=== PATIENT | male | born 1995 | race African-American/Black ===

== ENCOUNTER 2017-06-26 07:46 | Inpatient (IN) | payer MEDICAID, OTHER ==
[2017-06-26] VITALS (7 sets, daily range): BP systolic 107–128; BP diastolic 56–75
[~2017-06-26] VITALS: Ht 195.6 cm; Wt 67.6 kg
[2017-06-26] MEDS ORDERED: SODIUM CHLORIDE 0.9% 1,000 ML IV ONE ×2 (08:02)
[2017-06-26] MEDS ORDERED: HYDROmorphone HCL 2 MG/ML VL IV ONE ×2 (08:15→09:30)
[2017-06-26] MEDS ORDERED: ONDANSETRON HCL 4 MG/2 ML VIAL IV ONE (08:15)
[2017-06-26 09:31] LABS: Basophils # (auto) 0.1 uL; Basophils % (auto) 0.6 % (0.0-2.0); Eosinophils # (auto) 1.2 uL; Eosinophils % (auto) 5.6 % (0.0-7.0); Hematocrit 18.1 % (41.0-53.0); Lymphocytes # (auto) 4.5 uL; Lymphocytes % (auto) 21.6 % (10.0-50.0); Mean Corpuscular Hemoglobin 33.6 pg (28.0-32.0); Mean Corpuscular Hgb Conc. 35.6 g/dL (32.0-36.0); Mean Corpuscular Volume 94.3 fL (80.0-100.0); Monocytes % (auto) 4.8 % (0.0-12.0); Neutrophils % (auto) 67.4 % (37.0-80.0); Nucleated Red Blood Cells % 0.6 %; Platelet Count (auto) 351 10^3/uL (140-450); Red Blood Cells 1.92 10^6/uL (4.5-5.90); White Blood Cell 20.8 10^3/uL (4.4-10.8)
[2017-06-26 09:33] LABS: Red Cell Distribution Width 25.3 % (11.8-14.3)
[2017-06-26 09:38] LABS: Hemoglobin 6.4 g/dL (13.5-17.5)
[2017-06-26 09:50] LABS: Albumin 4.2 g/dL (3.4-5.0); BUN/Creatinine Ratio 25.6; Bilirubin, Total 4.2 mg/dL (0.2-1.0); Calcium 7.9 mg/dL (8.5-10.1); Potassium 3.7 mmol/L (3.5-5.1); Total Protein 7.5 g/dL (6.4-8.2)
[2017-06-26 11:22] LABS: Hematocrit 17.2 % (41.0-53.0)
[2017-06-26 11:32] LABS: INR 1.06 (0.9-1.15); Partial Thromboplastin Time 27.3 sec (22.64-33.71); Prothrombin Time 11.6 sec (9.37-12.3)
[2017-06-26 11:34] LABS: Hemoglobin 6.1 g/dL (13.5-17.5)
[2017-06-26] MEDS ORDERED: ONDANSETRON HCL 4 MG/2 ML VIAL IV PRN (12:00)
[2017-06-26] MEDS ORDERED: ACETAMINOPHEN 325 MG TAB PO PRN (12:00)
[2017-06-26] MEDS ORDERED: SODIUM CHLORIDE 0.9% 1,000 ML IV SCH (12:00)
[2017-06-26] MEDS ORDERED: PERCOT PO (12:08)
[2017-06-26] MEDS: HYDROmorphone HCL 2 MG/ML VL IV PRN ×2 (12:31→22:21)
[2017-06-26 14:31] LABS: Urine WBC None Seen /hpf (0 - 3)
[2017-06-26 14:56] LABS: Urine Bacteria NONE SEEN /hpf (None Seen); Urine Blood 1+ /uL (Negative); Urine Mucus FEW (None Seen); Urine Specific Gravity 1.008 (1.001-1.035)
[2017-06-26] MEDS ORDERED: FOLIC ACID 1 MG TAB PO ONE (15:15)
[2017-06-26] MEDS: SODIUM CHLORIDE 0.9% 1,000 ML IV SCH ×2 (15:58→23:30)
[2017-06-26] MEDS ORDERED: FOLI1TAB6 PO (17:58)
[2017-06-26] MEDS ORDERED: EPO2I SC (17:58)
[2017-06-26] MEDS: OXYCODONE W/ ACETAMINOPHEN 5/325MG TABLET PO PRN (22:25)
[2017-06-27] MEDS: OXYCODONE W/ ACETAMINOPHEN 5/325MG TABLET PO PRN (01:10)
[2017-06-27] MEDS: HYDROmorphone HCL 2 MG/ML VL IV PRN ×4 (01:36→21:40)
[2017-06-27 05:00] VITALS: BP 130/71
[2017-06-27] MEDS: SODIUM CHLORIDE 0.9% 1,000 ML IV SCH ×2 (07:00→15:05)
[2017-06-27 08:17] LABS: Basophils # (auto) 0.1 uL; Eosinophils # (auto) 1.3 uL; White Blood Cell 13.7 10^3/uL (4.4-10.8)
[2017-06-27 08:20] LABS: Basophils % (auto) 0.7 % (0.0-2.0); Eosinophils % (auto) 9.7 % (0.0-7.0); Hematocrit 18.8 % (41.0-53.0); Lymphocytes % (auto) 29.1 % (10.0-50.0); Mean Corpuscular Hemoglobin 32.9 pg (28.0-32.0); Mean Corpuscular Hgb Conc. 36.3 g/dL (32.0-36.0); Mean Corpuscular Volume 90.7 fL (80.0-100.0); Monocytes # (auto) 0.9 uL; Monocytes % (auto) 6.7 % (0.0-12.0); Neutrophils # (auto) 7.3 uL; Neutrophils % (auto) 53.8 % (37.0-80.0); Nucleated Red Blood Cells % 0.8 %; Platelet Count (auto) 309 10^3/uL (140-450); Red Blood Cells 2.08 10^6/uL (4.5-5.90)
[2017-06-27 08:31] LABS: Albumin 3.5 g/dL (3.4-5.0); BUN/Creatinine Ratio 18.5; Bilirubin, Total 4.1 mg/dL (0.2-1.0); Calcium 7.7 mg/dL (8.5-10.1); Potassium 4.9 mmol/L (3.5-5.1); Total Protein 6.3 g/dL (6.4-8.2)
[2017-06-27 08:36] LABS: Red Cell Distribution Width 21.5 % (11.8-14.3)
[2017-06-27 08:39] LABS: Hemoglobin 6.8 g/dL (13.5-17.5)
[2017-06-27 09:00] VITALS: BP 127/56
[2017-06-27] MEDS: FOLIC ACID 1 MG TAB PO SCH (09:35)
[2017-06-27 13:00] VITALS: BP 131/67
[2017-06-27 17:00] VITALS: BP 131/72
[2017-06-27 21:30] VITALS: BP 125/79
[2017-06-28] VITALS (11 sets, daily range): BP systolic 129–144; BP diastolic 71–90
[2017-06-28] MEDS: SODIUM CHLORIDE 0.9% 1,000 ML IV SCH ×2 (01:37→16:00)
[2017-06-28] MEDS: HYDROmorphone HCL 2 MG/ML VL IV PRN (01:38)
[2017-06-28 06:28] LABS: Eosinophils # (auto) 1.3 uL; Lymphocytes # (auto) 3.5 uL; Monocytes # (auto) 1.4 uL
[2017-06-28 06:31] LABS: Basophils # (auto) 0.2 uL; Basophils % (auto) 1.1 % (0.0-2.0); Eosinophils % (auto) 8.2 % (0.0-7.0); Hematocrit 18.6 % (41.0-53.0); Lymphocytes % (auto) 21.5 % (10.0-50.0); Mean Corpuscular Hemoglobin 32.6 pg (28.0-32.0); Mean Corpuscular Hgb Conc. 35.8 g/dL (32.0-36.0); Monocytes % (auto) 8.8 % (0.0-12.0); Neutrophils # (auto) 9.8 uL; Neutrophils % (auto) 60.4 % (37.0-80.0); Nucleated Red Blood Cells % 0.7 %; Platelet Count (auto) 308 10^3/uL (140-450); Red Blood Cells 2.04 10^6/uL (4.5-5.90); White Blood Cell 16.2 10^3/uL (4.4-10.8)
[2017-06-28 06:46] LABS: Albumin 3.6 g/dL (3.4-5.0); Bilirubin, Direct 0.4 mg/dL (0-0.2); Bilirubin, Total 5.3 mg/dL (0.2-1.0); Hemoglobin 6.6 g/dL (13.5-17.5); Red Cell Distribution Width 21.3 % (11.8-14.3); Total Protein 6.7 g/dL (6.4-8.2)
[2017-06-28] MEDS: FOLIC ACID 1 MG TAB PO SCH (10:26)
[2017-06-28] MEDS: OXYCODONE W/ ACETAMINOPHEN 5/325MG TABLET PO PRN (10:28)
== END 2017-06-28 19:10 | disposition home or self-care (01) | DRG 662 ==
LOC: ER 07:46 → OVERFLOW 07:47 → WEST WING 17:22
PROVIDERS: ADMIT Internal Medicine; ATTEND Internal Medicine
PROC: 30233N1 Transfusion of Nonautologous Red Blood Cells into Peripheral Vein, Percutaneous Approach (ICD-10-PCS; principal; 2017-06-26)
DX: D57.00 Hb-SS disease with crisis, unspecified (principal); R65.10 Systemic inflammatory response syndrome (SIRS) of non-infectious origin without acute organ dysfunction; D72.829 Elevated white blood cell count, unspecified; Z88.5 Allergy status to narcotic agent; Z90.49 Acquired absence of other specified parts of digestive tract
CPT/HCPCS: 36415; 36430; 71045; 76705; 80053; 80076; 81001; 85014; 85018; 85025; 85045; 85610; 85730; 86850; 86900; 86901; 86920; 86922; 96361; 96374; 96375; 96376; J2405

== ENCOUNTER → 2017-06-30 | Outpatient (CLI) | payer MEDICAID ==
[~2017-06-30] MED LIST: EPO2I SC; FOLI1TAB6 PO; PERCOT PO
== END | disposition home or self-care (01) ==
LOC: Rad HDHVI 07:52
PROVIDERS: ATTEND Internal Medicine Cardiovascular Disease
DX: I34.0 Nonrheumatic mitral (valve) insufficiency (principal)
CPT/HCPCS: 93306

== ENCOUNTER 2020-03-08 00:23 | Inpatient (IN) | payer MEDICAID ==
[~2020-03-08] VITALS: Ht 195.6 cm; Wt 62.0 kg
[2020-03-08] MEDS ORDERED: SODIUM CHLORIDE 0.9% 1,000 ML IV ONE ×2 (03:15→03:30)
[2020-03-08] MEDS ORDERED: HYDROmorphone HCL 2 MG/ML VL IV ONE (03:15)
[2020-03-08] MEDS ORDERED: ONDANSETRON HCL 4 MG/2 ML VIAL IV ONE (03:15)
[2020-03-08 03:31] LABS: Hematocrit 21.1 % (41.0-53.0); Hemoglobin 7.2 g/dL (13.5-17.5); Mean Corpuscular Hemoglobin 32.7 pg (28.0-32.0); Mean Corpuscular Hgb Conc. 34.1 g/dL (32.0-36.0); Mean Corpuscular Volume 95.9 fL (80.0-100.0); Platelet Count (auto) 510 10^3/uL (140-450); Red Blood Cells 2.21 10^6/uL (4.5-5.90); Red Cell Distribution Width 18.3 % (11.8-14.3); White Blood Cell 16.4 10^3/uL (4.4-10.8)
[2020-03-08 03:33] LABS: Band Neutrophils % (manual) 0; Basophils % (manual) 0 (0.0-2.0); Blast Cells 0; Eosinophils % (manual) 0 (0-7); Metamyelocytes % 0; Myelocytes % 0; Promyelocytes % 0; Reactive Lymphocytes 0
[2020-03-08 03:37] LABS: Urine Bacteria FEW /hpf (None Seen); Urine Blood Negative /uL (Negative); Urine Hyaline Cast FEW /lpf (0 - 2); Urine Mucus FEW (None Seen); Urine WBC 1 /hpf (0 - 3)
[2020-03-08 03:48] LABS: Lymphocytes % (manual) 30 (10.0-50.0); Monocytes % (manual) 5 (0-12)
[2020-03-08 03:49] LABS: Albumin 5.1 g/dL (3.4-5.0); Calcium 9.4 mg/dL (8.5-10.1); Potassium 4.3 mmol/L (3.5-5.1)
[2020-03-08 03:52] LABS: BUN/Creatinine Ratio 21.4
[2020-03-08 03:55] LABS: Total Protein 8.6 g/dL (6.4-8.2)
[2020-03-08] MEDS ORDERED: NITROGLYCERIN 0.4 MG SL TAB SL PRN (09:15)
[2020-03-08] MEDS ORDERED: MORPHINE SULF INJ 2 MG/ML SYRINGE 1ML IV PRN ×2 (09:15→20:00)
[2020-03-08] MEDS ORDERED: ONDANSETRON HCL 4 MG/2 ML VIAL IV PRN (09:15)
[2020-03-08] MEDS: SODIUM CHLORIDE 0.9% 1,000 ML IV SCH ×3 (10:06→21:53)
[2020-03-08] MEDS: MORPHINE SULF INJ 2 MG/ML SYRINGE 1ML IV PRN ×3 (12:35→23:27)
[2020-03-08 12:38] VITALS: BP 124/76
[2020-03-08 13:00] VITALS: BP 124/76
[2020-03-08] MEDS ORDERED: OXY5T GT (14:58)
[2020-03-08] MEDS ORDERED: AZITHROMYCIN 500MG/ 250ML 250 ML IV ONE (16:45)
[2020-03-08 16:48] VITALS: BP 118/72
[2020-03-08] MEDS: HYDROcodone-ACET 10/325MG TAB PO PRN (18:57)
[2020-03-08 22:00] VITALS: BP 110/57
[2020-03-09] MEDS: MORPHINE SULF INJ 2 MG/ML SYRINGE 1ML IV PRN ×3 (03:45→17:30)
[2020-03-09 05:13] VITALS: BP 100/62
[2020-03-09 07:12] LABS: Red Blood Cells 1.61 10^6/uL (4.5-5.90)
[2020-03-09 07:15] LABS: Hematocrit 15.4 % (41.0-53.0); Mean Corpuscular Hgb Conc. 33.4 g/dL (32.0-36.0); Mean Corpuscular Volume 95.9 fL (80.0-100.0); Platelet Count (auto) 384 10^3/uL (140-450); Red Cell Distribution Width 17.1 % (11.8-14.3); White Blood Cell 16.6 10^3/uL (4.4-10.8)
[2020-03-09 07:23] LABS: Albumin 3.6 g/dL (3.4-5.0); Calcium 7.9 mg/dL (8.5-10.1); Magnesium 2.4 mg/dL (1.6-2.6)
[2020-03-09 07:26] LABS: BUN/Creatinine Ratio 16.4; Bilirubin, Total 2.6 mg/dL (0.2-1.0); Total Protein 6.5 g/dL (6.4-8.2)
[2020-03-09 07:35] LABS: Hemoglobin 5.1 g/dL (13.5-17.5)
[2020-03-09 07:36] LABS: Basophils % (manual) 0 (0.0-2.0); Blast Cells 0; Metamyelocytes % 0; Myelocytes % 0; Promyelocytes % 0; Reactive Lymphocytes 0
[2020-03-09 08:15] VITALS: BP 107/66
[2020-03-09 08:29] LABS: Band Neutrophils % (manual) 2; Lymphocytes % (manual) 25 (10.0-50.0); Monocytes % (manual) 6 (0-12)
[2020-03-09 08:39] LABS: Eosinophils % (manual) 20 (0-7)
[2020-03-09 09:00] VITALS: BP 107/66
[2020-03-09] MEDS: SODIUM CHLORIDE 0.9% 1,000 ML IV SCH ×2 (09:15→17:29)
[2020-03-09] MEDS: AZITHROMYCIN 500MG/ 250ML 250 ML IV SCH (09:30)
[2020-03-09] MEDS: HYDROcodone-ACET 10/325MG TAB PO PRN ×2 (12:45→20:28)
[2020-03-09 13:00] VITALS: BP 117/66
[2020-03-09 17:00] VITALS: BP 110/65
[2020-03-09 21:51] VITALS: BP 121/72
[2020-03-09] MEDS: HYDROmorphone HCL 2 MG/ML VL IV PRN (23:24)
[2020-03-10] VITALS (17 sets, daily range): BP systolic 109–131; BP diastolic 69–80
[2020-03-10] MEDS: SODIUM CHLORIDE 0.9% 1,000 ML IV SCH ×3 (01:19→17:15)
[2020-03-10] MEDS: HYDROcodone-ACET 10/325MG TAB PO PRN ×2 (03:18→12:23)
[2020-03-10 09:18] LABS: Hematocrit 20.1 % (41.0-53.0); Mean Corpuscular Hemoglobin 30.8 pg (28.0-32.0); Mean Corpuscular Hgb Conc. 34.1 g/dL (32.0-36.0); Mean Corpuscular Volume 90.5 fL (80.0-100.0); Platelet Count (auto) 353 10^3/uL (140-450); Red Blood Cells 2.22 10^6/uL (4.5-5.90); Red Cell Distribution Width 18.6 % (11.8-14.3); White Blood Cell 13.8 10^3/uL (4.4-10.8)
[2020-03-10 09:33] LABS: Hemoglobin 6.8 g/dL (13.5-17.5)
[2020-03-10 09:34] LABS: Albumin 3.8 g/dL (3.4-5.0); Band Neutrophils % (manual) 0; Basophils % (manual) 0 (0.0-2.0); Blast Cells 0; Calcium 8.1 mg/dL (8.5-10.1); Metamyelocytes % 0; Myelocytes % 0; Potassium 3.9 mmol/L (3.5-5.1); Promyelocytes % 0; Reactive Lymphocytes 0
[2020-03-10 09:37] LABS: BUN/Creatinine Ratio 16.1; Bilirubin, Total 3.8 mg/dL (0.2-1.0); Total Protein 6.5 g/dL (6.4-8.2)
[2020-03-10] MEDS: HYDROmorphone HCL 2 MG/ML VL IV PRN ×2 (10:08→16:08)
[2020-03-10] MEDS: AZITHROMYCIN 500MG/ 250ML 250 ML IV SCH (10:08)
[2020-03-10 12:54] LABS: Eosinophils % (manual) 19 (0-7); Lymphocytes % (manual) 33 (10.0-50.0); Monocytes % (manual) 7 (0-12)
[2020-03-10 17:30] LABS: Hemoglobin 7.5 g/dL (13.5-17.5)
[2020-03-10 17:31] LABS: Hematocrit 21.8 % (41.0-53.0)
== END 2020-03-10 18:40 | disposition home or self-care (01) | DRG 662 ==
LOC: ER 00:25 → TELE 00:26 → TELE-CENTR 10:39
PROVIDERS: ADMIT Internal Medicine; ATTEND Internal Medicine
PROC: 30233N1 Transfusion of Nonautologous Red Blood Cells into Peripheral Vein, Percutaneous Approach (ICD-10-PCS; principal; 2020-03-10)
DX: D57.00 Hb-SS disease with crisis, unspecified (principal); D72.829 Elevated white blood cell count, unspecified; Z90.49 Acquired absence of other specified parts of digestive tract; E86.0 Dehydration
CPT/HCPCS: 36415; 80053; 81001; 82728; 83735; 85007; 85014; 85018; 85027; 85045; 86850; 86870; 86880; 86900; 86901; 86905; 86906; 86920; 86922; 86971; 87081; G0378; J2405

== ENCOUNTER 2020-03-29 18:29 | Inpatient (IN) | payer MEDICAID ==
[~2020-03-29] VITALS: Ht 195.6 cm; Wt 65.8 kg
[~2020-03-29 18:29] MED LIST changes: +OXY5T GT; -PERCOT PO
[2020-03-29 19:19] LABS: Basophils # (auto) 0.2 10 ^3/uL (0-0.2); Hematocrit 21.3 % (41.0-53.0); Neutrophils # (auto) 8.2 10 ^3/uL (1.6-8.6); Nucleated Red Blood Cells % 0.2 %
[2020-03-29 19:20] LABS: Basophils % (auto) 1.2 % (0.0-2.0); Eosinophils # (auto) 0.6 10 ^3/uL (0-0.8); Eosinophils % (auto) 4.6 % (0.0-7.0); Lymphocytes # (auto) 3.3 10 ^3/uL (0.4-5.4); Lymphocytes % (auto) 25.4 % (10.0-50.0); Mean Corpuscular Hemoglobin 30.4 pg (28.0-32.0); Mean Corpuscular Hgb Conc. 32.8 g/dL (32.0-36.0); Mean Corpuscular Volume 92.7 fL (80.0-100.0); Monocytes # (auto) 0.7 10 ^3/uL (0-1.3); Monocytes % (auto) 5.4 % (0.0-12.0); Neutrophils % (auto) 63.4 % (37.0-80.0); Platelet Count (auto) 375 10^3/uL (140-450); Red Cell Distribution Width 18.2 % (11.8-14.3); White Blood Cell 12.9 10^3/uL (4.4-10.8)
[2020-03-29 19:35] LABS: Albumin 4.3 g/dL (3.4-5.0); Calcium 8.6 mg/dL (8.5-10.1); Potassium 4.1 mmol/L (3.5-5.1)
[2020-03-29 19:38] LABS: BUN/Creatinine Ratio 12.6; Total Protein 7.7 g/dL (6.4-8.2)
[2020-03-29] MEDS ORDERED: HYDROmorphone HCL 2 MG/ML VL IV ONE (20:30)
[2020-03-29] MEDS ORDERED: ONDANSETRON HCL 4 MG/2 ML VIAL IV ONE (20:30)
[2020-03-29] MEDS ORDERED: SODIUM CHLORIDE 0.9% 1,000 ML IVB ONE (20:30)
[2020-03-29 23:18] LABS: Urine WBC None Seen /hpf (0 - 3)
[2020-03-29 23:35] LABS: Urine Bacteria NONE SEEN /hpf (None Seen); Urine Blood Negative /uL (Negative); Urine Specific Gravity 1.005 (1.001-1.035)
[2020-03-30] VITALS (19 sets, daily range): BP systolic 122–159; BP diastolic 74–95
--- NOTE | 2020-03-30 00:37 | NUR ---
Telemetry admit from [facility] admitted to Telemetry unit after SBAR received. Patient oriented to Cristofer dAams, primary RN, unit, room, bed, and unit policies regarding patient care and visiting hours. Patient now on continuous telemetry monitoring, tele box # [[id number]] and telemetry reading on arrival to unit is [[id number]]. Patient weighed by bedscale and encouraged to call if they need something. All questions and concerns addressed, patient verbalized understanding. Note: []
--- NOTE | 2020-03-30 00:38 | NUR ---
[facility] SWAB COLLECTED AND SENT. CONTINUE TO MONITOR.
[2020-03-30] MEDS: MORPHINE SULF INJ 2 MG/ML SYRINGE 1ML IV PRN ×3 (01:10→09:48)
--- NOTE | 2020-03-30 01:11 | NUR ---
MEDICATED PATIENT FOR PAIN @ 02/12. CONTINUE TO MONITOR.
--- NOTE | 2020-03-30 02:34 | NUR ---
1ST UNIT OF BLOOD TRANSFUSION STARTED @ 0232, VITALS, TEMP 98.3, HR 66, RR 18, BP 147/95, O2 SAT 99%. PATIENT TOLERATED WELL WITH NO S/S OF REACTION NOTED. CONTINUE TO MONITOR.
--- NOTE | 2020-03-30 03:39 | NUR ---
BLOOD TRANSFUSION CONTINUED, PATIENT TOLERATED WELL. NO S/S OF DISTRESS AND REACTION NOTED. VITALS STABLE. CONTINUE TO MONITOR.
--- NOTE | 2020-03-30 05:10 | NUR ---
1ST BLOOD TRANSFUSION COMPLETED. PATIENT TOLERATED WELL. NO S/S OF REACTION NOTED. CONTINUE TO MONITOR.
--- NOTE | 2020-03-30 05:30 | NUR ---
MEDICATED PATIENT FOR PAIN @ 01/12. CONTINUE TO MONITOR.
--- NOTE | 2020-03-30 05:51 | NUR ---
2ND BLOOD TRANSFUSION STARTED @ 0545AM, PATIENT TOLERATED WELL. VITALS: TEMP 98.2, HR 62, RR 18, BP 146/89. NO S/S OF REACTION NOTED. CONTINUE TO MONITOR.
--- NOTE | 2020-03-30 07:15 | NUR ---
BLOOD TRANSFUSION CONTINUED, NO S/S OF REACTION NOTED. PASS IT TO DAY SHIFT EMIL RODRIGUEZ.
[2020-03-30 08:29] LABS: Eosinophils # (auto) 0.9 10 ^3/uL (0-0.8); Neutrophils # (auto) 8.1 10 ^3/uL (1.6-8.6)
[2020-03-30 08:32] LABS: Basophils # (auto) 0.3 10 ^3/uL (0-0.2); Basophils % (auto) 1.7 % (0.0-2.0); Eosinophils % (auto) 5.8 % (0.0-7.0); Hematocrit 24.9 % (41.0-53.0); Hemoglobin 8.4 g/dL (13.5-17.5); Lymphocytes % (auto) 32.4 % (10.0-50.0); Mean Corpuscular Hemoglobin 30.9 pg (28.0-32.0); Mean Corpuscular Hgb Conc. 33.6 g/dL (32.0-36.0); Mean Corpuscular Volume 92.2 fL (80.0-100.0); Monocytes # (auto) 1.1 10 ^3/uL (0-1.3); Monocytes % (auto) 7.2 % (0.0-12.0); Neutrophils % (auto) 52.9 % (37.0-80.0); Nucleated Red Blood Cells % 0.3 %; Platelet Count (auto) 334 10^3/uL (140-450); Red Cell Distribution Width 16.5 % (11.8-14.3); White Blood Cell 15.3 10^3/uL (4.4-10.8)
[2020-03-30 08:54] LABS: Alanine Aminotransferase 27 U/L (16-61); Albumin 3.7 g/dL (3.4-5.0); Anion Gap 5 (5-15); Aspartate Aminotransferase 28 U/L (15-37); BUN/Creatinine Ratio 11.3; Blood Urea Nitrogen 8 mg/dL (7-18); Carbon Dioxide 27 mmol/L (21-32); Chloride 110 mmol/L (98-107); GFR African American 175 mL/min; GFR Non-African American 145 mL/min; Glucose 81 mg/dL (74-106); Potassium 4.2 mmol/L (3.5-5.1); Sodium 142 mmol/L (136-145)
[2020-03-30 08:59] LABS: Alkaline Phosphatase 80 U/L (45-117); Bilirubin, Total 2.7 mg/dL (0.2-1.0)
[2020-03-30] MEDS: ONDANSETRON HCL 4 MG/2 ML VIAL IV PRN (09:49)
[2020-03-30] MEDS: SODIUM CHLORIDE 0.9% 1,000 ML IV SCH (12:58)
[2020-03-30] MEDS: HYDROmorphone HCL 2 MG/ML VL IV PRN ×2 (14:00→20:16)
[2020-03-31] MEDS: SODIUM CHLORIDE 0.9% 1,000 ML IV SCH ×3 (00:44→18:02)
[2020-03-31] MEDS: HYDROmorphone HCL 2 MG/ML VL IV PRN ×3 (01:51→15:21)
[2020-03-31 05:00] VITALS: BP 143/91
[2020-03-31 09:00] VITALS: BP 144/86
[2020-03-31] MEDS: ONDANSETRON HCL 4 MG/2 ML VIAL IV PRN (09:06)
[2020-03-31 12:50] VITALS: BP 123/75
[2020-03-31 17:00] VITALS: BP 135/88
[2020-03-31] MEDS ORDERED: AZITHROMYCIN 500MG/ 250ML 250 ML IV ONE (17:30)
--- NOTE | 2020-03-31 17:45 | NUR ---
Hospitalist Rounded Hospitalist rounded on patient, for discharge after IV antibiotic this PM.
[2020-03-31 19:34] VITALS: BP 135/88
--- NOTE | 2020-03-31 20:25 | NUR ---
Afterhours DC IV DC'd with clean technique, catheter fully intact. Pressure dressing applied to site. Patient tolerated procedure well. Patient given DC instructions. Patient is to follow up with primary care provider Dr. Salvatore Escobedo. Patient states they will schedule their own appointment. Patient provided with follow up information. Discharge instructions provided, patient states they understand. Tele monitor DC'd. Wheeled patient down to lobby and placed safely into family warehouse picker ride.
[2020-04-01] MEDS ORDERED: AZITHROMYCIN 500MG/ 250ML 250 ML IV SCH (10:00)
== END 2020-03-31 20:30 | disposition home or self-care (01) | DRG 662 ==
LOC: ER 18:29 → TELE-WESTW 18:30
PROVIDERS: ADMIT Internal Medicine; ATTEND Internal Medicine
PROC: 30233N1 Transfusion of Nonautologous Red Blood Cells into Peripheral Vein, Percutaneous Approach (ICD-10-PCS; principal; 2020-03-30)
DX: D57.00 Hb-SS disease with crisis, unspecified (principal); R64 Cachexia; I51.7 Cardiomegaly; D72.829 Elevated white blood cell count, unspecified; Z82.49 Family history of ischemic heart disease and other diseases of the circulatory system; Z83.2 Family history of diseases of the blood and blood-forming organs and certain disorders involving the immune mechanism; Z68.1 Body mass index [BMI] 19.9 or less, adult; R10.9 Unspecified abdominal pain
CPT/HCPCS: 36415; 71045; 80053; 81001; 83735; 84484; 85025; 85652; 86850; 86870; 86900; 86901; 86922; 87081; 93005; 93306; G0378; J2405

== ENCOUNTER 2020-11-13 23:21 | Inpatient (IN) | payer MEDICAID ==
[~2020-11-13] VITALS: Ht 180.3 cm; Wt 68.4 kg
[~2020-11-13 23:21] MED LIST changes: -OXY5T GT; +OXY5T PO
[2020-11-14] VITALS (10 sets, daily range): BP systolic 115–135; BP diastolic 56–77
[2020-11-14 00:04] LABS: Eosinophils # (auto) 0.4 10 ^3/uL (0-0.8); Lymphocytes # (auto) 3.8 10 ^3/uL (0.4-5.4); Mean Corpuscular Hgb Conc. 35.4 g/dL (32.0-36.0)
[2020-11-14 00:06] LABS: Basophils # (auto) 0.2 10 ^3/uL (0-0.2); Eosinophils % (auto) 2.4 % (0.0-7.0); Hematocrit 14.4 % (41.0-53.0); Lymphocytes % (auto) 22.5 % (10.0-50.0); Mean Corpuscular Hemoglobin 35.2 pg (28.0-32.0); Mean Corpuscular Volume 99.2 fL (80.0-100.0); Monocytes % (auto) 6.2 % (0.0-12.0); Neutrophils # (auto) 11.4 10 ^3/uL (1.6-8.6); Neutrophils % (auto) 67.9 % (37.0-80.0); Platelet Count (auto) 391 10^3/uL (140-450); Red Blood Cells 1.45 10^6/uL (4.5-5.90); White Blood Cell 16.7 10^3/uL (4.4-10.8)
[2020-11-14 00:10] LABS: Nucleated Red Blood Cells % 4.6 %
[2020-11-14 00:12] LABS: Hemoglobin 5.1 g/dL (13.5-17.5); Red Cell Distribution Width 27.8 % (11.8-14.3)
[2020-11-14 00:21] LABS: Albumin 4.1 g/dL (3.4-5.0); BUN/Creatinine Ratio 14.9; Calcium 8.2 mg/dL (8.5-10.1); Potassium 4.5 mmol/L (3.5-5.1)
[2020-11-14 00:24] LABS: Bilirubin, Total 3.4 mg/dL (0.2-1.0); Total Protein 7.3 g/dL (6.4-8.2)
[2020-11-14 02:51] LABS: Amphetamine Screen, Urine NEGATIVE (NEGATIVE); Barbiturate Scree,Urine NEGATIVE (NEGATIVE); Benzodiazephine Screen, Urine NEGATIVE (NEGATIVE); Cannabinoid Screen, Urine POSITIVE (NEGATIVE); Cocaine Screen, Urine NEGATIVE (NEGATIVE); Opiate Scree,Urine POSITIVE (NEGATIVE); Phencyclidine Screen, Urine NEGATIVE (NEGATIVE)
[2020-11-14 03:12] LABS: Urine Bacteria FEW /hpf (None Seen); Urine Blood Negative /uL (Negative); Urine Hyaline Cast MOD /lpf (0 - 2); Urine Mucus FEW (None Seen); Urine WBC 1 /hpf (0 - 3)
[2020-11-14] MEDS ORDERED: DOCUSATE SOD 100 MG CAP PO PRN (03:15)
[2020-11-14] MEDS ORDERED: NITROGLYCERIN 0.4 MG SL TAB SL PRN (03:15)
[2020-11-14] MEDS ORDERED: ACETAMINOPHEN 325 MG TAB PO PRN (03:15)
[2020-11-14] MEDS ORDERED: MORPHINE SULF INJ 2 MG/ML SYRINGE 1ML IV PRN (03:15)
[2020-11-14] MEDS ORDERED: cefTRIAXone 1GM/50ML D5W 50 ML IV SCH (04:00)
[2020-11-14] MEDS: MORPHINE SULFATE 4 MG/ML SYR/VIAL IV PRN ×2 (04:55→09:12)
[2020-11-14 06:39] LABS: Basophils # (auto) 0.2 10 ^3/uL (0-0.2); Basophils % (auto) 1.3 % (0.0-2.0); Eosinophils # (auto) 0.6 10 ^3/uL (0-0.8); Eosinophils % (auto) 3.2 % (0.0-7.0); Hematocrit 13.8 % (41.0-53.0); Lymphocytes % (auto) 31.2 % (10.0-50.0); Mean Corpuscular Hemoglobin 35.7 pg (28.0-32.0); Mean Corpuscular Hgb Conc. 36.1 g/dL (32.0-36.0); Mean Corpuscular Volume 98.8 fL (80.0-100.0); Monocytes % (auto) 5.2 % (0.0-12.0); Neutrophils # (auto) 11.4 10 ^3/uL (1.6-8.6); Neutrophils % (auto) 59.1 % (37.0-80.0); Platelet Count (auto) 304 10^3/uL (140-450); White Blood Cell 19.3 10^3/uL (4.4-10.8)
[2020-11-14 06:56] LABS: Potassium 4.6 mmol/L (3.5-5.1)
[2020-11-14 07:06] LABS: Albumin 3.8 g/dL (3.4-5.0); BUN/Creatinine Ratio 21.7; Bilirubin, Total 2.5 mg/dL (0.2-1.0); Calcium 8.1 mg/dL (8.5-10.1); Total Protein 6.9 g/dL (6.4-8.2)
[2020-11-14 07:07] LABS: Nucleated Red Blood Cells % 3.8 %
[2020-11-14 07:09] LABS: Red Cell Distribution Width 28.4 % (11.8-14.3)
[2020-11-14] MEDS ORDERED: POM PO (07:21)
[2020-11-14] MEDS ORDERED: MORP30TA PO (07:21)
[2020-11-14] MEDS: ASCORBIC ACID 500 MG TAB PO SCH ×2 (09:11→21:51)
[2020-11-14] MEDS: FOLIC ACID 1 MG TAB PO SCH (09:11)
[2020-11-14] MEDS: MULTIPLE VITAMIN TAB PO SCH (09:11)
[2020-11-14] MEDS: FAMOTIDINE (10MG/ML) 2ML VL IV SCH ×2 (09:11→21:51)
[2020-11-14] MEDS: ZINC SULFATE 220mg CAP or TAB PO SCH (09:11)
[2020-11-14] MEDS: SODIUM CHLORIDE 0.9% 1,000 ML IV SCH ×2 (14:32→20:40)
[2020-11-14] MEDS: HYDROmorphone HCL 2 MG/ML VL IV PRN ×3 (14:33→23:02)
[2020-11-14] MEDS: HYDROcodone-ACET 5/325MG TAB PO PRN (20:01)
[2020-11-15] VITALS (8 sets, daily range): BP systolic 124–155; BP diastolic 70–82
[2020-11-15] MEDS: SODIUM CHLORIDE 0.9% 1,000 ML IV SCH ×4 (03:20→23:45)
[2020-11-15] MEDS: cefTRIAXone 1GM/50ML D5W 50 ML IV SCH (04:34)
[2020-11-15 06:29] LABS: Eosinophils # (auto) 0.9 10 ^3/uL (0-0.8); Lymphocytes # (auto) 5.7 10 ^3/uL (0.4-5.4)
[2020-11-15 06:32] LABS: Basophils # (auto) 0.2 10 ^3/uL (0-0.2); Basophils % (auto) 1.2 % (0.0-2.0); Eosinophils % (auto) 6.3 % (0.0-7.0); Hematocrit 18.9 % (41.0-53.0); Lymphocytes % (auto) 38.3 % (10.0-50.0); Mean Corpuscular Hemoglobin 35.5 pg (28.0-32.0); Mean Corpuscular Volume 95.7 fL (80.0-100.0); Monocytes # (auto) 0.5 10 ^3/uL (0-1.3); Monocytes % (auto) 3.1 % (0.0-12.0); Neutrophils # (auto) 7.7 10 ^3/uL (1.6-8.6); Neutrophils % (auto) 51.1 % (37.0-80.0); Platelet Count (auto) 393 10^3/uL (140-450); Red Blood Cells 1.98 10^6/uL (4.5-5.90)
[2020-11-15 06:47] LABS: Nucleated Red Blood Cells % 3.3 %
[2020-11-15 06:48] LABS: Mean Corpuscular Hgb Conc. 37.1 g/dL (32.0-36.0); Red Cell Distribution Width 23.7 % (11.8-14.3)
[2020-11-15 06:50] LABS: Potassium 4.5 mmol/L (3.5-5.1)
[2020-11-15 06:57] LABS: Albumin 3.4 g/dL (3.4-5.0); BUN/Creatinine Ratio 17.6; Bilirubin, Total 2.3 mg/dL (0.2-1.0); Calcium 7.9 mg/dL (8.5-10.1); Total Protein 6.6 g/dL (6.4-8.2)
[2020-11-15] MEDS: HYDROmorphone HCL 2 MG/ML VL IV PRN ×3 (08:18→23:06)
[2020-11-15] MEDS: FAMOTIDINE (10MG/ML) 2ML VL IV SCH ×2 (10:28→22:04)
[2020-11-15] MEDS: MORPHINE SULF 30 mg ER tab PO SCH ×2 (10:29→22:04)
[2020-11-15] MEDS: ZINC SULFATE 220mg CAP or TAB PO SCH (10:29)
[2020-11-15] MEDS: MULTIPLE VITAMIN TAB PO SCH (10:29)
[2020-11-15] MEDS: ASCORBIC ACID 500 MG TAB PO SCH ×2 (10:29→22:04)
[2020-11-15] MEDS: FOLIC ACID 1 MG TAB PO SCH (10:29)
[2020-11-15] MEDS: HYDROcodone-ACET 5/325MG TAB PO PRN (19:48)
[2020-11-15] MEDS: ONDANSETRON HCL 4 MG/2 ML VIAL IV PRN (20:32)
[2020-11-16 04:43] VITALS: BP 144/71
[2020-11-16] MEDS: cefTRIAXone 1GM/50ML D5W 50 ML IV SCH (05:54)
[2020-11-16] MEDS: HYDROmorphone HCL 2 MG/ML VL IV PRN (05:54)
[2020-11-16] MEDS: SODIUM CHLORIDE 0.9% 1,000 ML IV SCH ×3 (06:00→07:08)
[2020-11-16 09:00] VITALS: BP 114/68
[2020-11-16 09:22] LABS: Basophils # (auto) 0.2 10 ^3/uL (0-0.2); Hemoglobin 7.9 g/dL (13.5-17.5)
[2020-11-16 09:24] LABS: Basophils % (auto) 1.1 % (0.0-2.0); Eosinophils # (auto) 0.5 10 ^3/uL (0-0.8); Eosinophils % (auto) 3.2 % (0.0-7.0); Hematocrit 22.6 % (41.0-53.0); Lymphocytes # (auto) 2.5 10 ^3/uL (0.4-5.4); Lymphocytes % (auto) 15.5 % (10.0-50.0); Mean Corpuscular Hemoglobin 33.6 pg (28.0-32.0); Mean Corpuscular Hgb Conc. 35.1 g/dL (32.0-36.0); Mean Corpuscular Volume 95.7 fL (80.0-100.0); Monocytes # (auto) 1.1 10 ^3/uL (0-1.3); Monocytes % (auto) 6.7 % (0.0-12.0); Neutrophils # (auto) 11.8 10 ^3/uL (1.6-8.6); Neutrophils % (auto) 73.5 % (37.0-80.0); Nucleated Red Blood Cells % 1.4 %; Platelet Count (auto) 372 10^3/uL (140-450); Red Blood Cells 2.37 10^6/uL (4.5-5.90); Red Cell Distribution Width 21.3 % (11.8-14.3)
[2020-11-16 09:41] LABS: Albumin 3.5 g/dL (3.4-5.0); Calcium 8.3 mg/dL (8.5-10.1); Potassium 4.3 mmol/L (3.5-5.1)
[2020-11-16 09:45] LABS: BUN/Creatinine Ratio 19.7; Total Protein 6.8 g/dL (6.4-8.2)
[2020-11-16] MEDS: FOLIC ACID 1 MG TAB PO SCH (10:02)
[2020-11-16] MEDS: FAMOTIDINE (10MG/ML) 2ML VL IV SCH (10:02)
[2020-11-16] MEDS: MULTIPLE VITAMIN TAB PO SCH (10:03)
[2020-11-16] MEDS: ASCORBIC ACID 500 MG TAB PO SCH (10:03)
[2020-11-16] MEDS: ZINC SULFATE 220mg CAP or TAB PO SCH (10:03)
[2020-11-16] MEDS: MORPHINE SULF 30 mg ER tab PO SCH (10:03)
[2020-11-16] MEDS: ONDANSETRON HCL 4 MG/2 ML VIAL IV PRN (11:04)
[2020-11-16 12:48] VITALS: BP 116/63
== END 2020-11-16 12:50 | disposition home or self-care (01) | DRG 662 ==
LOC: ER 23:21 → TELE 11-14 03:01 → TELE-CENTR 11-14 06:20
PROVIDERS: ADMIT Nurse Practitioner Family; ATTEND Internal Medicine
PROC: 30233N1 Transfusion of Nonautologous Red Blood Cells into Peripheral Vein, Percutaneous Approach (ICD-10-PCS; principal; 2020-11-14)
DX: D57.00 Hb-SS disease with crisis, unspecified (principal); J96.01 Acute respiratory failure with hypoxia; N17.0 Acute kidney failure with tubular necrosis; D63.8 Anemia in other chronic diseases classified elsewhere; D72.829 Elevated white blood cell count, unspecified; Z20.822 Contact with and (suspected) exposure to COVID-19; Z82.49 Family history of ischemic heart disease and other diseases of the circulatory system; Z83.2 Family history of diseases of the blood and blood-forming organs and certain disorders involving the immune mechanism
CPT/HCPCS: 36415; 36600; 71045; 80053; 80307; 81001; 82805; 83605; 85025; 85045; 86850; 86900; 86901; 86922; 87040; 87426; 96365; 96375; G0378; J0696; J2405; J3490

== ENCOUNTER 2021-10-05 14:22 | Inpatient (IN) | payer MEDICAID ==
[~2021-10-05] VITALS: Ht 195.6 cm; Wt 62.2 kg
[~2021-10-05 14:22] MED LIST changes: -EPO2I SC; +MORP30TA PO; +POM PO
[2021-10-05 16:16] LABS: Basophils # (auto) 0.2 10 ^3/uL (0-0.2); Hematocrit 12.2 % (41.0-53.0); Nucleated Red Blood Cells % 1.2 %; Red Blood Cells 1.31 10^6/uL (4.5-5.90)
[2021-10-05 16:18] LABS: Albumin 3.5 g/dL (3.4-5.0); BUN/Creatinine Ratio 18.8; Basophils % (auto) 1.1 % (0.0-2.0); Calcium 7.4 mg/dL (8.5-10.1); Eosinophils # (auto) 1.3 10 ^3/uL (0-0.8); Eosinophils % (auto) 7.3 % (0.0-7.0); Lymphocytes # (auto) 5.8 10 ^3/uL (0.4-5.4); Lymphocytes % (auto) 31.9 % (10.0-50.0); Magnesium 2.6 mg/dL (1.6-2.6); Mean Corpuscular Hemoglobin 33.3 pg (28.0-32.0); Mean Corpuscular Hgb Conc. 35.8 g/dL (32.0-36.0); Mean Corpuscular Volume 93.1 fL (80.0-100.0); Monocytes # (auto) 1.4 10 ^3/uL (0-1.3); Monocytes % (auto) 7.7 % (0.0-12.0); Neutrophils # (auto) 9.5 10 ^3/uL (1.6-8.6); Potassium 5.2 mmol/L (3.5-5.1); Red Cell Distribution Width 27.5 % (11.8-14.3); White Blood Cell 18.3 10^3/uL (4.4-10.8)
[2021-10-05 16:20] LABS: Bilirubin, Total 3.8 mg/dL (0.2-1.0); Total Protein 6.4 g/dL (6.4-8.2)
[2021-10-05 16:21] LABS: Hemoglobin 4.4 g/dL (13.5-17.5)
[2021-10-05] MEDS ORDERED: MORPHINE SULFATE INJECTION 2 MG/ML SYRG IV ONE (16:30)
[2021-10-05] MEDS ORDERED: ONDANSETRON HCL 4 MG/2 ML VIAL IV ONE (16:30)
[2021-10-05] MEDS ORDERED: ASPirin-EC 325mg tab PO ONE (16:45)
[2021-10-05] MEDS ORDERED: ACETAMINOPHEN 325 MG TAB PO PRN (18:00)
[2021-10-05] MEDS ORDERED: MORPHINE SULFATE INJECTION 2 MG/ML SYRG IV PRN (18:00)
[2021-10-05] MEDS ORDERED: NITROGLYCERIN 0.4 MG SL TAB SL PRN (18:00)
[2021-10-05] MEDS ORDERED: HYDROcodone-ACET 5/325MG TAB PO PRN (18:00)
[2021-10-05] MEDS: SODIUM CHLORIDE 0.9% 1,000 ML IV SCH (18:49)
[2021-10-05] MEDS ORDERED: ONDANSETRON HCL 4 MG/2 ML VIAL ONE (21:41)
[2021-10-05] MEDS: MORPHINE SULFATE INJECTION 2 MG/ML SYRG IV PRN (21:43)
[2021-10-05 22:03] VITALS: BP 104/65
[2021-10-05 22:28] VITALS: BP 106/55
[2021-10-06] VITALS (41 sets, daily range): BP systolic 108–132; BP diastolic 54–77
[2021-10-06] MEDS: MORPHINE SULFATE INJECTION 2 MG/ML SYRG IV PRN ×2 (02:06→06:55)
[2021-10-06] MEDS: SODIUM CHLORIDE 0.9% 1,000 ML IV SCH ×4 (03:52→21:17)
[2021-10-06 07:46] LABS: Basophils # (auto) 0.2 10 ^3/uL (0-0.2); Basophils % (auto) 1.3 % (0.0-2.0); Eosinophils # (auto) 2.1 10 ^3/uL (0-0.8); Eosinophils % (auto) 12.6 % (0.0-7.0); Hematocrit 17.3 % (41.0-53.0); Lymphocytes # (auto) 5.1 10 ^3/uL (0.4-5.4); Lymphocytes % (auto) 30.7 % (10.0-50.0); Mean Corpuscular Hemoglobin 32.9 pg (28.0-32.0); Mean Corpuscular Hgb Conc. 36.4 g/dL (32.0-36.0); Mean Corpuscular Volume 90.3 fL (80.0-100.0); Monocytes # (auto) 1.1 10 ^3/uL (0-1.3); Monocytes % (auto) 6.7 % (0.0-12.0); Neutrophils # (auto) 8.1 10 ^3/uL (1.6-8.6); Neutrophils % (auto) 48.7 % (37.0-80.0); Red Blood Cells 1.91 10^6/uL (4.5-5.90); White Blood Cell 16.7 10^3/uL (4.4-10.8)
[2021-10-06 07:51] LABS: Hemoglobin 6.3 g/dL (13.5-17.5); Red Cell Distribution Width 22.7 % (11.8-14.3)
[2021-10-06 08:03] LABS: Potassium 5.4 mmol/L (3.5-5.1)
[2021-10-06 08:19] LABS: Albumin 3.4 g/dL (3.4-5.0); BUN/Creatinine Ratio 15.6; Bilirubin, Total 4.2 mg/dL (0.2-1.0); Calcium 8.1 mg/dL (8.5-10.1); Total Protein 6.3 g/dL (6.4-8.2)
[2021-10-06] MEDS: FOLIC ACID 1 MG TAB PO SCH (09:01)
[2021-10-06] MEDS ORDERED: SODIUM ZIRCONIUM CYCL 10 GM PAK PO ONE (09:30)
[2021-10-06] MEDS ORDERED: FUROSEMIDE 20 MG/2 ML VIAL IV ONE (09:30)
[2021-10-06] MEDS ORDERED: ALBUTEROL SULF 2.5 MG/0.5ML(0.5%) NEB SOLN NEB ONE (09:30)
[2021-10-06] MEDS ORDERED: PATIENTS OWN MEDICATION PO SCH (10:00)
[2021-10-06] MEDS: HYDROmorphone HCL 2 MG/ML VL/or syr IV PRN ×4 (10:01→23:37)
[2021-10-06] MEDS: ONDANSETRON HCL 4 MG/2 ML VIAL IV PRN ×2 (15:35→20:19)
[2021-10-07] VITALS: BP 116/75
[2021-10-07 04:00] VITALS: BP 141/85
[2021-10-07] MEDS: HYDROmorphone HCL 2 MG/ML VL/or syr IV PRN ×2 (04:34→08:38)
[2021-10-07] MEDS: SODIUM CHLORIDE 0.9% 1,000 ML IV SCH ×2 (04:36→08:38)
[2021-10-07 05:02] LABS: Basophils # (auto) 0.2 10 ^3/uL (0-0.2); Eosinophils # (auto) 1.4 10 ^3/uL (0-0.8); Eosinophils % (auto) 9.2 % (0.0-7.0); Hematocrit 23.4 % (41.0-53.0); Hemoglobin 8.3 g/dL (13.5-17.5); Lymphocytes # (auto) 3.4 10 ^3/uL (0.4-5.4); Lymphocytes % (auto) 22.4 % (10.0-50.0); Mean Corpuscular Hemoglobin 32.3 pg (28.0-32.0); Mean Corpuscular Hgb Conc. 35.6 g/dL (32.0-36.0); Mean Corpuscular Volume 90.6 fL (80.0-100.0); Monocytes % (auto) 6.8 % (0.0-12.0); Neutrophils # (auto) 9.3 10 ^3/uL (1.6-8.6); Neutrophils % (auto) 60.6 % (37.0-80.0); Nucleated Red Blood Cells % 1.9 %; Red Blood Cells 2.58 10^6/uL (4.5-5.90); White Blood Cell 15.4 10^3/uL (4.4-10.8)
[2021-10-07 05:04] LABS: Red Cell Distribution Width 22.3 % (11.8-14.3)
[2021-10-07] MEDS: FOLIC ACID 1 MG TAB PO SCH (08:38)
[2021-10-07 09:08] VITALS: BP 126/71
[2021-10-07] MEDS ORDERED: OXBRYTA PO SCH (10:00)
== END 2021-10-07 11:15 | disposition left against medical advice (07) | DRG 662 ==
LOC: ER 14:22 → EDBD 14:22 → TELE 17:49 → DOU IN ICU 10-06 04:35
PROVIDERS: ADMIT Nurse Practitioner; ATTEND Nurse Practitioner
PROC: 30233N1 Transfusion of Nonautologous Red Blood Cells into Peripheral Vein, Percutaneous Approach (ICD-10-PCS; principal; 2021-10-05)
DX: D57.00 Hb-SS disease with crisis, unspecified (principal); M54.50 Low back pain, unspecified; Z20.822 Contact with and (suspected) exposure to COVID-19; N18.9 Chronic kidney disease, unspecified; Z82.49 Family history of ischemic heart disease and other diseases of the circulatory system; Z83.2 Family history of diseases of the blood and blood-forming organs and certain disorders involving the immune mechanism; Z53.29 Procedure and treatment not carried out because of patient's decision for other reasons
CPT/HCPCS: 36415; 71045; 80053; 83735; 84132; 84484; 85025; 85045; 86850; 86900; 86901; 86902; 86920; 86922; 87081; 93005; 93306; 94640; 96374; 96375; 99291; G0378; J2405

== ENCOUNTER 2022-02-17 08:15 | Inpatient (IN) | payer MEDICAID ==
[~2022-02-17] VITALS: Ht 195.6 cm; Wt 60.3 kg
[2022-02-17] MEDS ORDERED: ONDANSETRON HCL 4 MG/2 ML VIAL IV ONE (09:45)
[2022-02-17] MEDS ORDERED: MORPHINE SULFATE 4 MG/ML SYR/VIAL IV ONE (09:45)
[2022-02-17] MEDS ORDERED: SODIUM CHLORIDE 0.9% 1,000 ML IV ONE ×2 (09:45)
[2022-02-17 10:10] LABS: Basophils # (auto) 0.2 10 ^3/uL (0-0.2); Eosinophils # (auto) 1.1 10 ^3/uL (0-0.8); Lymphocytes # (auto) 3.8 10 ^3/uL (0.4-5.4)
[2022-02-17 10:14] LABS: Basophils % (auto) 1.7 % (0.0-2.0); Eosinophils % (auto) 7.7 % (0.0-7.0); Hematocrit 19.9 % (41.0-53.0); Lymphocytes % (auto) 27.2 % (10.0-50.0); Mean Corpuscular Hemoglobin 32.7 pg (28.0-32.0); Mean Corpuscular Hgb Conc. 33.3 g/dL (32.0-36.0); Mean Corpuscular Volume 98.2 fL (80.0-100.0); Monocytes # (auto) 0.8 10 ^3/uL (0-1.3); Monocytes % (auto) 5.8 % (0.0-12.0); Neutrophils # (auto) 8.2 10 ^3/uL (1.6-8.6); Neutrophils % (auto) 57.6 % (37.0-80.0); Red Blood Cells 2.03 10^6/uL (4.5-5.90); White Blood Cell 14.2 10^3/uL (4.4-10.8)
[2022-02-17 10:27] LABS: BUN/Creatinine Ratio 17.1; Bilirubin, Total 2.8 mg/dL (0.2-1.0); Calcium 8.6 mg/dL (8.5-10.1); Total Protein 7.3 g/dL (6.4-8.2)
[2022-02-17 10:29] LABS: Hemoglobin 6.6 g/dL (13.5-17.5); Red Cell Distribution Width 23.7 % (11.8-14.3)
[2022-02-17 10:45] LABS: Potassium 5.6 mmol/L (3.5-5.1)
[2022-02-17 12:16] LABS: Basophils % (manual) 0 (0.0-2.0); Blast Cells 0; Metamyelocytes % 0; Myelocytes % 0; Promyelocytes % 0; Reactive Lymphocytes 0
[2022-02-17 12:23] LABS: Band Neutrophils % (manual) 1; Eosinophils % (manual) 8 (0-7); Lymphocytes % (manual) 29 (10.0-50.0); Monocytes % (manual) 6 (0-12)
[2022-02-17] MEDS ORDERED: TEMAZEPAM 15 MG CAP PO PRN (12:45)
[2022-02-17] MEDS ORDERED: ONDANSETRON HCL 4 MG/2 ML VIAL IV PRN (12:45)
[2022-02-17] MEDS ORDERED: MORPHINE SULFATE INJ 2 MG/ml SYRG IV PRN (12:45)
[2022-02-17] MEDS ORDERED: ACETAMINOPHEN 325 MG TAB PO PRN (12:45)
[2022-02-17] MEDS ORDERED: DOCUSATE SOD 100 MG CAP PO PRN (12:45)
[2022-02-17] MEDS ORDERED: NITROGLYCERIN 0.4 MG SL TAB SL PRN (12:45)
[2022-02-17] MEDS: SODIUM CHLORIDE 0.9% 1,000 ML IV SCH ×2 (18:03→20:33)
[2022-02-17 22:45] VITALS: BP 122/73
[2022-02-17 22:51] VITALS: BP 134/81
[2022-02-17 23:06] VITALS: BP 134/81
[2022-02-17 23:21] VITALS: BP 133/82
[2022-02-17] MEDS ORDERED: SODIUM ZIRCONIUM CYCL 10 GM PAK PO ONE (23:30)
[2022-02-17 23:38] VITALS: BP 138/88
[2022-02-18] VITALS (14 sets, daily range): BP systolic 115–139; BP diastolic 58–87
[2022-02-18] MEDS: MORPHINE SULFATE INJ 2 MG/ml SYRG IV PRN ×2 (00:45→08:21)
[2022-02-18] MEDS: SODIUM CHLORIDE 0.9% 1,000 ML IV SCH ×3 (02:05→15:25)
[2022-02-18] MEDS: HYDROcodone-ACET 5/325MG TAB PO PRN ×2 (02:50→16:36)
[2022-02-18 07:40] LABS: Basophils # (auto) 0.3 10 ^3/uL (0-0.2); Hemoglobin 8.2 g/dL (13.5-17.5); Mean Corpuscular Volume 90.8 fL (80.0-100.0)
[2022-02-18 07:44] LABS: Eosinophils # (auto) 0.2 10 ^3/uL (0-0.8); Eosinophils % (auto) 1.7 % (0.0-7.0); Hematocrit 24.2 % (41.0-53.0); Lymphocytes # (auto) 3.5 10 ^3/uL (0.4-5.4); Lymphocytes % (auto) 23.4 % (10.0-50.0); Mean Corpuscular Hemoglobin 30.9 pg (28.0-32.0); Monocytes # (auto) 1.1 10 ^3/uL (0-1.3); Monocytes % (auto) 7.3 % (0.0-12.0); Neutrophils # (auto) 9.7 10 ^3/uL (1.6-8.6); Neutrophils % (auto) 65.6 % (37.0-80.0); Nucleated Red Blood Cells % 1.6 %; Red Blood Cells 2.67 10^6/uL (4.5-5.90); White Blood Cell 14.8 10^3/uL (4.4-10.8)
[2022-02-18 08:02] LABS: Calcium 8.7 mg/dL (8.5-10.1); Potassium 5.3 mmol/L (3.5-5.1)
[2022-02-18 08:10] LABS: Albumin 3.8 g/dL (3.4-5.0); BUN/Creatinine Ratio 16.7; Bilirubin, Total 2.7 mg/dL (0.2-1.0)
[2022-02-18] MEDS ORDERED: FOLIC ACID 1 MG TAB PO SCH (10:00)
[2022-02-18 10:10] LABS: Red Cell Distribution Width 24.1 % (11.8-14.3)
[2022-02-18] MEDS ORDERED: CYAN100042 PO (15:06)
[2022-02-18] MEDS ORDERED: FOLITAB22 PO (15:06)
[2022-02-18] MEDS ORDERED: OXYC325T10 PO (15:06)
[2022-02-18] MEDS ORDERED: METH10TA2 PO (15:12)
== END 2022-02-18 20:00 | disposition home or self-care (01) | DRG 662 ==
LOC: EDBD 08:15 → ER 08:15 → TELE 12:35 → TELE-WESTW 02-18 13:49
PROVIDERS: ADMIT Nurse Practitioner; ATTEND Nurse Practitioner
PROC: 30233N1 Transfusion of Nonautologous Red Blood Cells into Peripheral Vein, Percutaneous Approach (ICD-10-PCS; principal; 2022-02-17)
DX: D57.00 Hb-SS disease with crisis, unspecified (principal); E87.5 Hyperkalemia; M79.662 Pain in left lower leg; Z82.49 Family history of ischemic heart disease and other diseases of the circulatory system; Z83.2 Family history of diseases of the blood and blood-forming organs and certain disorders involving the immune mechanism; Z20.822 Contact with and (suspected) exposure to COVID-19
CPT/HCPCS: 36415; 36430; 80053; 85025; 85045; 86850; 86900; 86901; 86922; G0378; J2405

== ENCOUNTER 2023-12-08 15:31 | Inpatient (IN) | payer MEDICAID ==
[~2023-12-08] VITALS: Ht 195.6 cm; Wt 59.1 kg
[~2023-12-08 15:31] MED LIST changes: +CYAN100042 PO; +FOLI-119 PO; -FOLI1TAB6 PO; +METH10TA12 PO; +OXYC325T10 PO
[2023-12-08] MEDS: SODIUM CHLORIDE 0.9% 1,000 ML IV ONE ×2 (16:39)
[2023-12-08 16:40] VITALS: PULSE 82; RESP 20; O2SAT 92
[2023-12-08] MEDS: HYDROmorphone HCL 2 MG/ML VL/or syr IV ONE (16:40)
[2023-12-08 17:15] LABS: Alanine Aminotransferase 44 U/L (7-40); Albumin 4.5 g/dL (3.2-4.8); Alkaline Phosphatase 54 U/L (46-116); Anion Gap 10 (5-15); Aspartate Aminotransferase 75 U/L (13-40); BUN/Creatinine Ratio 22.7 (10.0-20.0); Bilirubin, Total 4.4 mg/dL (0.2-1.0); Blood Urea Nitrogen 27 mg/dL (9-23); Calcium 9.1 mg/dL (8.5-10.1); Carbon Dioxide 18 mmol/L (20-30); Chloride 110 mmol/L (98-107); Glucose 95 mg/dL (74-106); Potassium 4.8 mmol/L (3.5-5.1); Sodium 138 mmol/L (136-145); Total Protein 7.5 g/dL (5.7-8.2)
[2023-12-08 18:01] LABS: Lipase 35 U/L (12-53)
[2023-12-08 20:08] LABS: Hematocrit 11.2 % (41.0-53.0); Mean Corpuscular Hemoglobin 33.7 pg (28.0-32.0); Mean Corpuscular Hgb Conc. 36.4 g/dL (32.0-36.0); Mean Corpuscular Volume 92.6 fL (80.0-100.0); Red Blood Cells 1.21 10^6/uL (4.5-5.90); White Blood Cell 11.6 10^3/uL (4.4-10.8)
[2023-12-08 20:16] LABS: Urine Bacteria None Seen /hpf (None Seen)
[2023-12-08 20:18] LABS: Hemoglobin 4.1 g/dL (13.5-17.5); Red Cell Distribution Width 23.7 % (11.8-14.3)
[2023-12-08 20:20] LABS: Basophils % (manual) 0 (0.0-2.0); Blast Cells 0; Eosinophils % (manual) 0 (0-7); Metamyelocytes % 0; Myelocytes % 0; Promyelocytes % 0; Reactive Lymphocytes 0
[2023-12-08 20:30] LABS: Urine Blood TRACE /uL (Negative); Urine Clarity Clear (Clear); Urine Color Light-Orange (Yellow); Urine Protein, UAD TRACE (Negative); Urine Urobilinogen Normal (Negative); Urine WBC <1 /hpf (0 - 3); Urine pH 5.5 (5.0-9.0)
[2023-12-08 20:50] LABS: Anisocytosis Moderate; Band Neutrophils % (manual) 10; Lymphocytes % (manual) 23 (10.0-50.0); Monocytes % (manual) 8 (0-12)
[2023-12-08 20:51] LABS: Giant Platelets Few; Macrocytosis Slight; Ovalocytes FEW; Platelet Estimate Adequate; Sickle Cells MANY
[2023-12-08 21:23] LABS: % Iron Saturation 14.7 % (20-55)
[2023-12-08] MEDS: HYDROmorphone HCL 2 MG/ML VL/or syr IV PRN (21:30)
[2023-12-08] MEDS ORDERED: DOCUSATE SOD 100 MG CAP PO PRN (21:30)
[2023-12-08] MEDS ORDERED: ONDANSETRON HCL 4 MG/2 ML VIAL IV PRN (21:30)
[2023-12-08] MEDS: SODIUM CHLORIDE 0.9% 1,000 ML IV SCH (21:30)
[2023-12-08] MEDS ORDERED: ACETAMINOPHEN 325 MG TAB PO PRN (21:30)
[2023-12-08 21:39] LABS: Ferritin > 1650.0 ng/mL (22-322)
[2023-12-08] MEDS ORDERED: IBUPROFEN 600 MG TAB PO PRN (21:45)
[2023-12-08] MEDS ORDERED: NITROGLYCERIN 0.4 MG SL TAB SL PRN (23:45)
[2023-12-09] VITALS (16 sets, daily range): BP systolic 97–117; BP diastolic 52–71; PULSE 53–66; RESP 15–20; TEMP 97.8–98.6; O2SAT 97–100
[2023-12-09 08:47] LABS: Basophils # (auto) 0.1 10 ^3/uL (0-0.2); Eosinophils # (auto) 0.3 10 ^3/uL (0-0.8); Lymphocytes # (auto) 3.3 10 ^3/uL (0.4-5.4); Monocytes # (auto) 0.8 10 ^3/uL (0-1.3); Red Blood Cells 1.74 10^6/uL (4.5-5.90)
[2023-12-09 08:49] LABS: Basophils % (auto) 1.4 % (0.0-2.0); Eosinophils % (auto) 2.8 % (0.0-7.0); Hematocrit 15.6 % (41.0-53.0); Lymphocytes % (auto) 35.4 % (10.0-50.0); Mean Corpuscular Hemoglobin 32.5 pg (28.0-32.0); Mean Corpuscular Hgb Conc. 36.2 g/dL (32.0-36.0); Mean Corpuscular Volume 89.8 fL (80.0-100.0); Monocytes % (auto) 8.8 % (0.0-12.0); Neutrophils # (auto) 4.7 10 ^3/uL (1.6-8.6); Neutrophils % (auto) 51.6 % (37.0-80.0); Nucleated Red Blood Cells % 0.9 %; White Blood Cell 9.2 10^3/uL (4.4-10.8)
[2023-12-09 09:03] LABS: Red Cell Distribution Width 21.4 % (11.8-14.3)
[2023-12-09 09:05] LABS: Hemoglobin 5.7 g/dL (13.5-17.5)
[2023-12-09 09:21] LABS: Alanine Aminotransferase 49 U/L (7-40); Alkaline Phosphatase 44 U/L (46-116); Calcium 8.7 mg/dL (8.7-10.4); Carbon Dioxide 19 mmol/L (20-30); Chloride 113 mmol/L (98-107); Glucose 83 mg/dL (74-106)
[2023-12-09 09:22] LABS: Anion Gap 6 (5-15); Aspartate Aminotransferase 67 U/L (13-40); BUN/Creatinine Ratio 26.2 (10.0-20.0); Blood Urea Nitrogen 28 mg/dL (9-23); Potassium 5.3 mmol/L (3.5-5.1); Sodium 138 mmol/L (136-145)
[2023-12-09 09:23] LABS: Total Protein 6.8 g/dL (5.7-8.2)
[2023-12-09 09:50] LABS: Large Platelets FEW; Platelet Estimate Adequate
[2023-12-09 17:05] LABS: Hematocrit 19.5 % (41.0-53.0)
[2023-12-09 17:14] LABS: Hemoglobin 6.9 g/dL (13.5-17.5)
[2023-12-10] VITALS (10 sets, daily range): BP systolic 101–120; BP diastolic 57–73; PULSE 18–72; RESP 16–18; TEMP 97.9–98.7; O2SAT 96–98
[2023-12-10 06:06] LABS: Basophils # (auto) 0.1 10 ^3/uL (0-0.2); Basophils % (auto) 0.9 % (0.0-2.0); Eosinophils # (auto) 0.3 10 ^3/uL (0-0.8); Hemoglobin 7.1 g/dL (13.5-17.5); Monocytes # (auto) 0.8 10 ^3/uL (0-1.3)
[2023-12-10 06:08] LABS: Eosinophils % (auto) 2.6 % (0.0-7.0); Hematocrit 20.2 % (41.0-53.0); Lymphocytes # (auto) 2.7 10 ^3/uL (0.4-5.4); Lymphocytes % (auto) 23.4 % (10.0-50.0); Mean Corpuscular Hgb Conc. 35.1 g/dL (32.0-36.0); Mean Corpuscular Volume 88.3 fL (80.0-100.0); Monocytes % (auto) 7.1 % (0.0-12.0); Neutrophils # (auto) 7.6 10 ^3/uL (1.6-8.6); Nucleated Red Blood Cells % 0.6 %; Red Blood Cells 2.29 10^6/uL (4.5-5.90); Red Cell Distribution Width 19.5 % (11.8-14.3); White Blood Cell 11.6 10^3/uL (4.4-10.8)
[2023-12-10 06:12] LABS: Alanine Aminotransferase 60 U/L (7-40); Alkaline Phosphatase 45 U/L (46-116); Anion Gap 7 (5-15); Calcium 8.8 mg/dL (8.5-10.1); Carbon Dioxide 18 mmol/L (20-30); Chloride 114 mmol/L (98-107); Potassium 4.9 mmol/L (3.5-5.1); Sodium 139 mmol/L (136-145)
[2023-12-10 06:13] LABS: BUN/Creatinine Ratio 25.8 (10.0-20.0); Blood Urea Nitrogen 25 mg/dL (9-23); Glucose 78 mg/dL (74-106)
[2023-12-10 06:15] LABS: Aspartate Aminotransferase 67 U/L (13-40); Bilirubin, Total 3.5 mg/dL (0.2-1.0); Total Protein 6.7 g/dL (5.7-8.2)
[2023-12-10] MEDS: HYDROmorphone HCL 2 MG/ML VL/or syr IV PRN (15:04)
[2023-12-10] MEDS: SOD CHL 0.45% 1,000 ML IV SCH (15:05)
[2023-12-11 01:24] VITALS: BP 125/76; PULSE 57; RESP 18; TEMP 98.2; O2SAT 99
[2023-12-11 06:59] LABS: Basophils # (auto) 0.1 10 ^3/uL (0-0.2); Basophils % (auto) 1.1 % (0.0-2.0); Eosinophils # (auto) 0.4 10 ^3/uL (0-0.8); Eosinophils % (auto) 3.3 % (0.0-7.0); Hematocrit 19.1 % (41.0-53.0); Lymphocytes # (auto) 3.4 10 ^3/uL (0.4-5.4); Lymphocytes % (auto) 30.4 % (10.0-50.0); Mean Corpuscular Hemoglobin 30.8 pg (28.0-32.0); Mean Corpuscular Hgb Conc. 35.1 g/dL (32.0-36.0); Mean Corpuscular Volume 87.8 fL (80.0-100.0); Monocytes # (auto) 0.9 10 ^3/uL (0-1.3); Monocytes % (auto) 8.1 % (0.0-12.0); Neutrophils # (auto) 6.4 10 ^3/uL (1.6-8.6); Neutrophils % (auto) 57.1 % (37.0-80.0); Nucleated Red Blood Cells % 0.5 %; Red Blood Cells 2.18 10^6/uL (4.5-5.90); Red Cell Distribution Width 19.8 % (11.8-14.3); White Blood Cell 11.3 10^3/uL (4.4-10.8)
[2023-12-11 07:04] LABS: Hemoglobin 6.7 g/dL (13.5-17.5)
[2023-12-11 07:08] LABS: Chloride 113 mmol/L (98-107); Potassium 4.7 mmol/L (3.5-5.1); Sodium 138 mmol/L (136-145)
[2023-12-11 07:09] LABS: Anion Gap 5 (5-15); Calcium 8.6 mg/dL (8.7-10.4); Carbon Dioxide 20 mmol/L (20-30)
[2023-12-11 07:14] LABS: Blood Urea Nitrogen 24 mg/dL (9-23); Glucose 83 mg/dL (74-106)
[2023-12-11 08:00] VITALS: PULSE 60
[2023-12-11 09:00] VITALS: BP 139/83; PULSE 67; RESP 16
[2023-12-11 14:20] LABS: Hepatitis C Antibody Negative (Negative)
[2023-12-12 03:45] LABS: Hepatitis B Surface Antigen Negative (Negative)
== END 2023-12-11 10:35 | disposition left against medical advice (07) | DRG 662 ==
LOC: EDBD 15:31 → ER 15:41 → TELE 23:39 → TELE-CENTR 12-09 03:20 → TELE-E-ADS 12-11 02:33
PROVIDERS: ADMIT Nurse Practitioner Family; ATTEND Internal Medicine
PROC: 30233N1 Transfusion of Nonautologous Red Blood Cells into Peripheral Vein, Percutaneous Approach (ICD-10-PCS; principal; 2023-12-09)
DX: D57.00 Hb-SS disease with crisis, unspecified (principal); D72.829 Elevated white blood cell count, unspecified; R74.8 Abnormal levels of other serum enzymes; R74.01 Elevation of levels of liver transaminase levels; I10 Essential (primary) hypertension; Z82.49 Family history of ischemic heart disease and other diseases of the circulatory system; Z88.5 Allergy status to narcotic agent; Z79.899 Other long term (current) drug therapy; Z79.891 Long term (current) use of opiate analgesic; Z83.2 Family history of diseases of the blood and blood-forming organs and certain disorders involving the immune mechanism; Z90.49 Acquired absence of other specified parts of digestive tract
CPT/HCPCS: 36415; 80048; 80053; 81001; 82607; 82728; 82746; 83540; 83550; 83615; 83690; 85007; 85014; 85018; 85025; 85027; 85045; 86803; 86850; 86900; 86901; 86922; 87340; 96361; 96374; G0378